=== PATIENT | female | born 1975 | race Caucasian/White ===

== ENCOUNTER 2023-01-07 12:03 | Emergency (ER) | payer MEDICAID ==
[~2023-01-07] VITALS: Ht 167.6 cm; Wt 131.8 kg
[2023-01-07] MEDS ORDERED: MORPHINE SULFATE 4 MG/ML SYR/VIAL IM ONE (14:45)
[2023-01-07] MEDS ORDERED: LIDOCAINE 1% HCL (LOCAL ANESTH.) INJ 20ML MDV ID ONE (14:45)
[2023-01-07] MEDS ORDERED: NEOMYCIN-BACITRACIN-POLYM UNITDOSE PKG TOP OINT TOP ONE (14:45)
[2023-01-07] MEDS ORDERED: ONDANSETRON ODT 4 MG TAB PO ONE (14:45)
[2023-01-07] MEDS ORDERED: TETANUS-DIPTH-ACEL PERTUSSIS 0.5ML SYR Tdap IM ONE (16:45)
[2023-01-07] MEDS ORDERED: HYDROcodone-ACET 10/325MG TAB PO ONE (16:45)
[2023-01-07 17:03] VITALS: BP 135/75
[2023-01-07] MEDS ORDERED: AUG875T PO (17:10)
[2023-01-07] MEDS ORDERED: HYDR-4902 PO ×2 (17:10)
[2023-01-07] MEDS ORDERED: CEPH-510 PO (17:10)
[2023-01-07] MEDS ORDERED: CYCL-839 PO (17:10)
== END 2023-01-07 17:40 | disposition home or self-care (01) ==
LOC: EDBD 12:03 → ER 12:03
DX: S52.612A Displaced fracture of left ulna styloid process, initial encounter for closed fracture (principal); S61.552A Open bite of left wrist, initial encounter; E78.5 Hyperlipidemia, unspecified; W54.0XXA Bitten by dog, initial encounter; Y93.89 Activity, other specified; Y92.89 Other specified places as the place of occurrence of the external cause; Y99.8 Other external cause status
CPT/HCPCS: 12002; 73110; 73130; 90471; 90715; 96372; 99284; J2001; J2270; Q0162

== ENCOUNTER 2023-01-09 11:47 | Inpatient (IN) | payer MEDICAID ==
[~2023-01-09] VITALS: Ht 167.6 cm; Wt 135.8 kg
[~2023-01-09 11:47] MED LIST: AUG875T PO; CEPH-510 PO; CYCL-839 PO; HYDR-4902 PO
[2023-01-09] MEDS ORDERED: PIPERACILLIN-TAZO 4.5GM 100 ML IV ONE (13:30)
[2023-01-09] MEDS ORDERED: cefTRIAXone 1GM/50ML D5W 50 ML IV ONE (13:30)
[2023-01-09 13:50] LABS: Basophils # (auto) 0.1 10 ^3/uL (0-0.2); Basophils % (auto) 0.8 % (0.0-2.0); Eosinophils # (auto) 0.1 10 ^3/uL (0-0.8); Eosinophils % (auto) 0.5 % (0.0-7.0); Hematocrit 38.4 % (36.0-46.0); Hemoglobin 12.7 g/dL (12.2-16.2); Lymphocytes # (auto) 2.1 10 ^3/uL (0.4-5.4); Lymphocytes % (auto) 18.1 % (10.0-50.0); Mean Corpuscular Hemoglobin 28.4 pg (28.0-32.0); Mean Corpuscular Hgb Conc. 33.1 g/dL (32.0-36.0); Mean Corpuscular Volume 85.8 fL (80.0-100.0); Monocytes # (auto) 0.8 10 ^3/uL (0-1.3); Monocytes % (auto) 6.9 % (0.0-12.0); Neutrophils # (auto) 8.6 10 ^3/uL (1.6-8.6); Neutrophils % (auto) 73.7 % (37.0-80.0); Nucleated Red Blood Cells % 0.1 %; Red Blood Cells 4.47 10^6/uL (4.0-5.20); Red Cell Distribution Width 15.2 % (11.8-14.3); White Blood Cell 11.6 10^3/uL (4.4-10.8)
[2023-01-09 14:07] LABS: BUN/Creatinine Ratio 15.9 (10.0-20.0); Calcium 9.6 mg/dL (8.5-10.1); Potassium 3.8 mmol/L (3.5-5.1)
[2023-01-09] MEDS ORDERED: ONDANSETRON HCL 4 MG/2 ML VIAL IV PRN (15:45)
[2023-01-09] MEDS ORDERED: NITROGLYCERIN 0.4 MG SL TAB SL PRN (15:45)
[2023-01-09] MEDS ORDERED: MORPHINE SULFATE INJ 2 MG/ml SYRG IV PRN (15:45)
[2023-01-09] MEDS ORDERED: TEMAZEPAM 15 MG CAP PO PRN (15:45)
[2023-01-09] MEDS ORDERED: ACETAMINOPHEN 325 MG TAB PO PRN (15:45)
[2023-01-09] MEDS ORDERED: hydrALAZINE HCL 20 MG/ML VL IV PRN (16:00)
[2023-01-09] MEDS: SODIUM CHLORIDE 0.9% 1,000 ML IV SCH ×2 (17:27→20:41)
[2023-01-09] MEDS: MORPHINE SULFATE INJ 2 MG/ml SYRG IV PRN ×2 (20:42→21:08)
[2023-01-09] MEDS: PIPERACILLIN-TAZOB 3.375GM 100 ML IV SCH (23:07)
[2023-01-10] MEDS: MORPHINE SULFATE INJ 2 MG/ml SYRG IV PRN ×3 (04:26→21:03)
[2023-01-10 05:00] VITALS: BP 132/57
[2023-01-10] MEDS: PIPERACILLIN-TAZOB 3.375GM 100 ML IV SCH ×3 (06:00→23:00)
[2023-01-10 06:50] LABS: Basophils # (auto) 0 10 ^3/uL (0-0.2); Basophils % (auto) 0.5 % (0.0-2.0); Eosinophils # (auto) 0.1 10 ^3/uL (0-0.8); Eosinophils % (auto) 1.1 % (0.0-7.0); Hematocrit 36.8 % (36.0-46.0); Hemoglobin 11.8 g/dL (12.2-16.2); Lymphocytes # (auto) 2.2 10 ^3/uL (0.4-5.4); Lymphocytes % (auto) 23.1 % (10.0-50.0); Mean Corpuscular Hemoglobin 28.4 pg (28.0-32.0); Mean Corpuscular Hgb Conc. 32.1 g/dL (32.0-36.0); Mean Corpuscular Volume 88.2 fL (80.0-100.0); Monocytes # (auto) 0.6 10 ^3/uL (0-1.3); Monocytes % (auto) 6.8 % (0.0-12.0); Neutrophils # (auto) 6.4 10 ^3/uL (1.6-8.6); Neutrophils % (auto) 68.5 % (37.0-80.0); Nucleated Red Blood Cells % 0.1 %; Red Blood Cells 4.17 10^6/uL (4.0-5.20); Red Cell Distribution Width 15.8 % (11.8-14.3); White Blood Cell 9.3 10^3/uL (4.4-10.8)
[2023-01-10 07:33] LABS: Albumin 2.9 g/dL (3.4-5.0); Calcium 8.6 mg/dL (8.5-10.1)
[2023-01-10 07:38] LABS: BUN/Creatinine Ratio 15.5 (10.0-20.0); Total Protein 7.5 g/dL (6.4-8.2)
[2023-01-10 09:00] VITALS: BP 119/63
[2023-01-10] MEDS: LISINOPRIL 20 MG TAB PO SCH (11:00)
[2023-01-10] MEDS: SODIUM CHLORIDE 0.9% 1,000 ML IV SCH (12:08)
[2023-01-10] MEDS: ENOXAPARIN SOD 40 MG/0.4 ML SYRINGE SC SCH (12:09)
[2023-01-10] MEDS: PANTOPRAZOLE 40 MG TAB PO SCH (12:09)
[2023-01-10 13:00] VITALS: BP 125/71
[2023-01-10 17:00] VITALS: BP 128/63
[2023-01-10 21:58] VITALS: BP 111/59
[2023-01-11] MEDS: SODIUM CHLORIDE 0.9% 1,000 ML IV SCH ×2 (01:05→17:02)
[2023-01-11] MEDS: MORPHINE SULFATE INJ 2 MG/ml SYRG IV PRN ×2 (01:33→05:41)
[2023-01-11 05:00] VITALS: BP 156/80
[2023-01-11] MEDS: DOCUSATE SOD 100 MG CAP PO PRN ×2 (05:41→19:50)
[2023-01-11] MEDS: PIPERACILLIN-TAZOB 3.375GM 100 ML IV SCH ×3 (05:49→21:13)
[2023-01-11 09:00] VITALS: BP 128/71
[2023-01-11] MEDS: LISINOPRIL 20 MG TAB PO SCH (10:00)
[2023-01-11] MEDS ORDERED: LORazepam 0.5 MG TAB PO ONE (11:00)
[2023-01-11] MEDS: ENOXAPARIN SOD 40 MG/0.4 ML SYRINGE SC SCH (11:34)
[2023-01-11] MEDS: PANTOPRAZOLE 40 MG TAB PO SCH (11:34)
[2023-01-11] MEDS ORDERED: LORazepam 2MG/ML-1ML VIAL IV ONE (12:30)
[2023-01-11 13:00] VITALS: BP 153/77
[2023-01-11 17:00] VITALS: BP 141/61
[2023-01-11 22:00] VITALS: BP 145/72
[2023-01-11] MEDS: HYDROcodone-ACET 5/325MG TAB PO PRN (23:12)
[2023-01-12 01:48] LABS: Partial Thromboplastin Time 26.3 sec (24.6-33.4)
[2023-01-12 05:00] VITALS: BP 129/59
[2023-01-12] MEDS: PIPERACILLIN-TAZOB 3.375GM 100 ML IV SCH ×3 (05:24→21:38)
[2023-01-12 09:02] VITALS: BP 159/77
[2023-01-12] MEDS: LISINOPRIL 20 MG TAB PO SCH (10:00)
[2023-01-12] MEDS: PANTOPRAZOLE 40 MG TAB PO SCH (10:00)
[2023-01-12] MEDS: ENOXAPARIN SOD 40 MG/0.4 ML SYRINGE SC SCH (10:00)
[2023-01-12] MEDS: SODIUM CHLORIDE 0.9% 1,000 ML IV SCH (10:25)
[2023-01-12] MEDS ORDERED: fentaNYL CITRATE 100 MCG/2 ML VL ONE (10:31)
[2023-01-12] MEDS ORDERED: MIDAZOLAM HCL 2MG/2ML 2ml VIAL (1mg/ml) ONE (10:31)
[2023-01-12] MEDS ORDERED: ceFAZolin 1GM VL ONE (10:31)
[2023-01-12] MEDS ORDERED: ONDANSETRON HCL 4 MG/2 ML VIAL ONE (10:57)
[2023-01-12] MEDS ORDERED: HYDROmorphone HCL 2 MG/ML VL/or syr IV ONE ×2 (11:30→11:40)
[2023-01-12] MEDS ORDERED: HYDROmorphone HCL 2 MG/ML VL/or syr IV PRN ×2 (11:30)
[2023-01-12] MEDS ORDERED: METOCLOPRAMIDE HCL 5MG/ml INJ 2ml VIAL IV PRN (11:30)
[2023-01-12] MEDS ORDERED: hydrALAZINE HCL 20 MG/ML VL IV ONE (12:05)
[2023-01-12 13:00] VITALS: BP 152/67
[2023-01-12] MEDS: DOCUSATE SOD 100 MG CAP PO PRN (13:24)
[2023-01-12] MEDS ORDERED: LACTULOSE 20Gm/30ML SOLN PO PRN (16:15)
[2023-01-12 16:59] VITALS: BP 135/50
[2023-01-12] MEDS: HYDROcodone-ACET 5/325MG TAB PO PRN (18:17)
[2023-01-12 22:00] VITALS: BP 134/68
[2023-01-13] MEDS: HYDROcodone-ACET 5/325MG TAB PO PRN ×3 (00:17→16:42)
[2023-01-13] MEDS: SODIUM CHLORIDE 0.9% 1,000 ML IV SCH ×2 (04:04→20:54)
[2023-01-13 05:00] VITALS: BP 148/65
[2023-01-13] MEDS: DOCUSATE SOD 100 MG CAP PO PRN (05:15)
[2023-01-13] MEDS: PIPERACILLIN-TAZOB 3.375GM 100 ML IV SCH ×3 (05:15→21:08)
[2023-01-13 09:00] VITALS: BP 148/92
[2023-01-13] MEDS: PANTOPRAZOLE 40 MG TAB PO SCH (09:39)
[2023-01-13] MEDS: LISINOPRIL 20 MG TAB PO SCH (09:39)
[2023-01-13] MEDS: NICOTINE 14 MG/24HR TOPICAL PATCH TD SCH (09:40)
[2023-01-13] MEDS: ENOXAPARIN SOD 40 MG/0.4 ML SYRINGE SC SCH (09:41)
[2023-01-13] MEDS ORDERED: HYDR-4902 PO (10:35)
[2023-01-13 13:00] VITALS: BP 161/66
[2023-01-13 22:00] VITALS: BP 135/72
[2023-01-14 05:00] VITALS: BP 164/76
[2023-01-14] MEDS: PIPERACILLIN-TAZOB 3.375GM 100 ML IV SCH ×3 (05:24→22:20)
[2023-01-14 08:58] VITALS: BP 160/74
[2023-01-14] MEDS: NICOTINE 14 MG/24HR TOPICAL PATCH TD SCH (10:00)
[2023-01-14] MEDS: LISINOPRIL 20 MG TAB PO SCH (10:00)
[2023-01-14] MEDS ORDERED: AMOX-277 PO (10:19)
[2023-01-14] MEDS ORDERED: BACDST PO (10:20)
[2023-01-14] MEDS ORDERED: RIFA300C3 PO (10:21)
[2023-01-14] MEDS: HYDROcodone-ACET 5/325MG TAB PO PRN ×2 (11:12→16:56)
[2023-01-14] MEDS: ENOXAPARIN SOD 40 MG/0.4 ML SYRINGE SC SCH (11:12)
[2023-01-14] MEDS: PANTOPRAZOLE 40 MG TAB PO SCH (11:13)
[2023-01-14] MEDS: SODIUM CHLORIDE 0.9% 1,000 ML IV SCH (12:25)
[2023-01-14 17:00] VITALS: BP 158/72
[2023-01-14 22:00] VITALS: BP 150/72
[2023-01-15] MEDS: PIPERACILLIN-TAZOB 3.375GM 100 ML IV SCH ×2 (05:54→14:49)
[2023-01-15] MEDS: SODIUM CHLORIDE 0.9% 1,000 ML IV SCH (05:54)
[2023-01-15 09:00] VITALS: BP 154/78
[2023-01-15] MEDS: NICOTINE 14 MG/24HR TOPICAL PATCH TD SCH (10:00)
[2023-01-15] MEDS: PANTOPRAZOLE 40 MG TAB PO SCH (10:08)
[2023-01-15] MEDS: ENOXAPARIN SOD 40 MG/0.4 ML SYRINGE SC SCH (10:09)
[2023-01-15] MEDS: LISINOPRIL 20 MG TAB PO SCH (10:09)
[2023-01-15] MEDS: HYDROcodone-ACET 5/325MG TAB PO PRN (10:10)
[2023-01-15 13:00] VITALS: BP 153/80
[2023-01-15 17:00] VITALS: BP 146/86
[2023-01-15 18:20] VITALS: BP 146/86
== END 2023-01-15 19:16 | disposition home health service (06) | DRG 316 ==
LOC: ER 11:47 → OVERFLOW 15:50 → CENTRAL 23:32
PROVIDERS: ADMIT Nurse Practitioner; ATTEND Nurse Practitioner
PROC: 0JBK0ZZ Excision of Left Hand Subcutaneous Tissue and Fascia, Open Approach (ICD-10-PCS; principal; 2023-01-12 10:31)
DX: S52.202A Unspecified fracture of shaft of left ulna, initial encounter for closed fracture (principal); T79.7XXA Traumatic subcutaneous emphysema, initial encounter; L03.114 Cellulitis of left upper limb; S61.552A Open bite of left wrist, initial encounter; K59.00 Constipation, unspecified; F17.210 Nicotine dependence, cigarettes, uncomplicated; Z20.822 Contact with and (suspected) exposure to COVID-19; Z82.49 Family history of ischemic heart disease and other diseases of the circulatory system; W54.0XXA Bitten by dog, initial encounter; Y93.89 Activity, other specified; Y92.89 Other specified places as the place of occurrence of the external cause; Y99.8 Other external cause status; Z71.6 Tobacco abuse counseling
CPT/HCPCS: 36415; 73221; 80048; 80053; 83605; 84702; 85025; 85610; 85730; 86850; 86900; 86901; 87040; 87070; 87075; 87077; 87081; 87186; 87205; 87426; 93005; 96365; G0378; J0690; J0696; J2250; J2405; J2543; J7042

== ENCOUNTER 2023-01-20 04:42 | Emergency (ER) | payer MEDICAID ==
[~2023-01-20] VITALS: Ht 167.6 cm; Wt 135.0 kg
[~2023-01-20 04:42] MED LIST changes: +AMOX-277 PO; -AUG875T PO; +BACDST PO; -CEPH-510 PO; +RIFA300C3 PO
[2023-01-20 05:02] VITALS: BP 169/79
[2023-01-20] MEDS ORDERED: SODIUM CHLORIDE 0.9% 1,000 ML IV ONE (07:00)
== END 2023-01-20 07:45 | disposition left against medical advice (07) ==
LOC: ER 04:42
DX: R11.2 Nausea with vomiting, unspecified (principal); Z53.21 Procedure and treatment not carried out due to patient leaving prior to being seen by health care provider

== ENCOUNTER 2023-01-30 11:03 | Emergency (ER) | payer MEDICAID ==
[~2023-01-30] VITALS: Ht 167.6 cm; Wt 131.7 kg
[2023-01-30 12:11] VITALS: BP 146/96
[2023-01-30] MEDS ORDERED: CLIN300C8 PO (12:12)
== END 2023-01-30 12:21 | disposition home or self-care (01) ==
LOC: ER 11:03
DX: Z48.00 Encounter for change or removal of nonsurgical wound dressing (principal); Z88.1 Allergy status to other antibiotic agents

== ENCOUNTER 2025-05-30 15:16 | Emergency (ER) | payer MEDICAID ==
[~2025-05-30] VITALS: Ht 167.6 cm; Wt 136.7 kg
[~2025-05-30 15:16] MED LIST changes: -AMOX-277 PO; +AMOX875T4 PO; +CLIN1CAP70 PO; -RIFA300C3 PO; +RIFA300C58 PO
--- NOTE | 2025-05-30 15:56 | ED.PDOC ---
Back pain HPI HPI Comments 49 y/o F, presents to the ED for CC of left leg pain. Patient states, she has been experiencing left leg and knee pain sudden onset, x3-4days ago. Patient endorses, that pain worsens while lying down and feels "like if there is fluid inside". Patient reports, standing over x8hrs d/t work and believes symptoms maybe related to this. Patient denies any trauma, injury, or fall. No others symptoms or modifying factors are present at this time. Chief Complaint: Lower Extremity Time Seen by MD: 15:45 Primary Care Provider: YOHAN Reviewed Notes: Nurses Notes, Medications, Allergies Allergies: Coded Allergies: No Known Drug Allergy (Verified Allergy, Unknown, 01/07/23) Uncoded Allergies: TRIMEX (Allergy, Unknown, 01/07/23) Home Meds Active Scripts Clindamycin Hcl (Clindamycin Hcl) 300 Mg Cap, 300 MG PO QID for 7 Days, #28 CAP Prov:KRIS PEARCE 01/30/23 Rifampin (Rifampin) 300 Mg Cap, 300 MG PO BID for 40 Days, #80 CAP Prov:MARINA ALMANZAR MD 01/14/23 Sulfamethoxazole W/Trimethopri (Bactrim Ds Tablet) 1 Tab Tb, 1 TAB PO BID for 40 Days, #80 TAB Prov:MARINA ALMANZAR MD 01/14/23 Amoxicillin & Pot Clavulanate (Amoxicillin/Potassium Cla) 875 Mg Tab, 1 TAB PO BID for 40 Days, #80 TAB Prov:MARINA ALMANZAR MD 01/14/23 Hydrocodone-Acetaminophen (Hydrocodone Bitartrate/AC 5-325 mg) 1 Tab Tab, 1 TAB PO Q6HPRN PRN for 4 Days, #16 TAB 0 Refills Prov:VIOLA PARKS INSURANCE EXAMINING CLERK 01/13/23 Cyclobenzaprine Hcl (Cyclobenzaprine Hcl) 10 Mg Tab, 10 MG PO Q8HPRN PRN, #12 TAB 0 Refills Prov:DOMINGO ALCALA REFINISHER 01/07/23 Information Source: Patient Mode of Arrival: Ambulatory Duration: Since onset Location of Back pain: Other (left leg pain, left knee pain) Severity: Moderate Prehospital treatment: None Onset: Spontaneous Circumstance: Work Related History of: None Associated signs and symptoms: None Past Medical History PAST MEDICAL HISTORY: Denies Surgical History: Denies all surgeries LADLE WATCHER History: No Pertinent LADLE WATCHER History Family History Family History: Reviewed,noncontributory to illness, No family hx of Cancer, No family hx of DM, No family hx of Heart ayan, No family hx of HTN, No family hx ofKidney ayan, No family hx of Liver ayan, No family hx of Lung ayan, No family hx of Stroke Social History Smoker: Non-Smoker Alcohol: Denies ETOH Use Drugs: Denies Drug Use Lives In: Home Constitutional: denies: chills, diaphoresis, fatigue, fever, malaise, sweats, weakness, others EENTM: denies: blurred vision, double vision, ear bleeding, ear discharge, ear drainage, ear pain, ear ringing, eye pain, eye redness, hearing loss, mouth pain, mouth swelling, nasal discharge, nose bleeding, nose congestion, nose pain, photophobia, tearing, throat pain, throat swelling, voice changes, others Respiratory: denies: cough, hemoptysis, orthopnea, SOB at rest, shortness of breath, SOB with excertion, stridor, wheezing, others Cardiovascular: denies: chest pain, dizzy spells, diaphoresis, Dyspnea on exertion, edema, irregular heart beat, left arm pain, lightheadedness, palpitations, PND, syncope, others Gastrointestinal: denies: abdomen distended, abdominal pain, blood streaked bowels, constipated, diarrhea, dysphagia, difficulty swallowing, hematemesis, melena, nausea, poor appetite, poor fluid intake, rectal bleeding, rectal pain, vomiting, others Genitourinary: denies: abnormal vagina bleeding, burning, dyspareunia, dysuria, flank pain, frequency, hematuria, incontinence, pain, , vagina discharge, urgency, others Neurological: denies: dizziness, fainting, headache, left sided numbness, left sided weakness, numbness, paresthesia, pre-existing deficit, right sided numbness, right sided weakness, seizure, speech problems, tingling, tremors, weakness, others Musculoskeletal: reports: others (left knee pain); denies: back pain, gout, joint pain, joint swelling, muscle pain, muscle stiffness, neck pain Integumetry: denies: bruises, change in color, change in hair/nails, dryness, laceration, lesions, lumps, rash, wounds, others Allergic/Immunocompromised: denies: Difficulty Healing, Frequent Infections, Hives, Itching, others Hematologic/Lymphatic: denies: anemia, blood clots, easy bleeding, easy bruising, swollen glands, others Endocrine: denies: excessive hunger, excessive sweating, excessive thirst, excessive urination, flushing, intolerance to cold, intolerance to heat, unexplained weight gain, unexplained weight loss, others Psychiatric: denies: anxiety, bipolar disorder, depression, hopeless, panic disorder, schizophrenia, sleepless, suicidal, others All Other Systems: Reviewed and Negative Physical Exam General Appearance: No Apparent Distress, Normal HEENT: Normal ENT Inspection, Pharynx Normal Neck: Full Range of Motion, Non-Tender, Normal, Normal Inspection Respiratory: Chest Non-Tender, Lungs Clear, No Accessory Muscle Use, No Respiratory Distress, Normal Breath Sounds Cardiovascular: No Edema, No Murmur, No Gallop, Normal Peripheral Pulses, Regular Rate/Rhythm Breast Exam: Deferred Gastrointestinal: No Organomegaly, Non Tender, No Pulsatile Mass, Normal Bowel Sounds, Soft Genitalia: Deferred Pelvic: Deferred Rectal: Deferred Extremities: No calf tenderness, Normal capillary refill, Normal inspection, Normal range of motion, Non-tender, No pedal edema Musculoskeletal : Location: Left Extremity Location: Knee Apperance: Tenderness Neurologic: Alert, capital equipment specialist II-XII nml as Tested, No Motor Deficits, Normal Affect, Normal Mood, No Sensory Deficits Cerebellar Function: Normal Reflexes: Normal Skin: Dry, Normal Color, Warm Lymphatic: No Adenopathy Was a procedure done? Was a procedure done?: No Back Pain Differential Dx Differential Diagnosis: Musculoskeletal Pain, Strain X-Ray, Labs, Meds, VS Vital Signs Date Time Temp Pulse Resp B/P (MAP) Pulse Ox O2 Delivery O2 Flow Rate FiO2 05/30/25 16:14 75 18 92 Room Air 05/30/25 16:14 98.3 75 18 151/45 (80) 92 98.3 05/30/25 15:17 98.0 81 15 165/96 97 98.0 Current Medications Medications (Trade) Dose Ordered Sig/Abdirizak Route Start Time Stop Time Status Last Admin Methylprednisolone Sodium Succinate (Solu Medrol) 125 mg ONCE ONCE IM 05/30/25 16:00 05/30/25 16:01 DC 05/30/25 16:03 Ketorolac Tromethamine (Toradol Injection) 30 mg ONCE ONCE IM 05/30/25 16:00 05/30/25 16:01 DC 05/30/25 16:[address] [address] Ph: [phone] DIAGNOSTIC IMAGING Diagnostic Imaging Report : [id number] Signed PATIENT: VANESSA SÁNCHEZ ACCT: [id number] UNIT: [id number] : 1975 LOC: ER ROOM / BED: / AGE / SEX: 49 / F ADM STATUS: REG ER SERVICE 1552 ORDERING PHYSICIAN: ROSE GARRETT PROCEDURE(s): LKNE3 - L KNEE 3V XRAY REASON: knee pain ORDER NUMBER(s): [id number], ACCESSION NUMBER(s): [id number] CLINICAL INDICATION: knee pain TECHNIQUE: 3 views left knee XY L KNEE 3V XRAY Comparison: None FINDINGS/IMPRESSION: : There is no evidence of acute fracture or dislocation. Soft tissues are unremarkable. ATED BY: CELINA OROZCO MD DICTATED DATE/TIME: 05/30/251628 SIGNED BY: CELINA OROZCO MD SIGNED DATE/TIME: 05/30/251628 CC: X-Ray, Labs, Meds, VS Comment Imaging was reviewed by this provider, there is no obvious pathological or acute disease process. Pending radiology review Labs were reviewed by this provider, no abnormalities Vital signs reviewed by this provider, clinically stable Time of 1ST Reevaluation: 15:15 Reevaluation 1ST: Unchanged Patient Education/Counseling: Diagnosis, Treatment, Need For Follow Up (Follow- up with PCP in the next 2-4 days. Return to the emergency department in the nex t 24-48 hours if symptoms worsen.) Family Education/Counseling: No Family Present SEPSIS Sepsis Screen Date sepsis recognized/suspect: May 30, 2025 Time Sepsis recognized/suspect: 1520 Recent Procedure: No On Antibiotic Therapy: No Respiratory Rate >20: No Heart Rate >90: No Temp<36 C (96.8 F) or >38.3 C: No SBP <90 or MAP <65 mmHG: No New Acute Mental Status Change: No Is the patient on CPAP, BIPAP,: No Physician Orders L Knee 3v Xray (05/30/25 15:51) Vital Signs Date Time Temp Pulse Resp B/P (MAP) Pulse Ox O2 Delivery O2 Flow Rate FiO2 05/30/25 16:14 75 18 92 Room Air 05/30/25 16:14 98.3 75 18 151/45 (80) 92 98.3 05/30/25 15:17 98.0 81 15 165/96 97 98.0 Medications Medications Dose Ordered Sig/Abdirizak Route Start Time Stop Time Status Last Admin Dose Admin Ketorolac Tromethamine 30 mg ONCE ONCE IM 05/30/25 16:00 05/30/25 16:01 DC 05/30/25 16:03 Methylprednisolone Sodium Succinate 125 mg ONCE ONCE IM 05/30/25 16:00 05/30/25 16:01 DC 05/30/25 16:03 Departure 1 Departure Time of Disposition: 17:01 Impression: Primary Impression: Effusion, left knee Disposition: 01 HOME / SELF CARE / HOMELESS Condition: Fair e-Prescriptions Methylprednisolone (Medrol Dosepak) 4 Mg Josh 4 MG PO UD, #21 TAB UAD Prov: ROSE GARRETT 05/30/25 Discharged With: Self Critical Care Note Critical Care Time?: No Stability Stability form required: No Heart Score Heart Score: Heart Score Response (Comments) Value History N/A 0 EKG N/A 0 Age N/A 0 Risk Factors N/A 0 Troponin N/A 0 Total 0 I personally scribed for ROSE GARRETT REFINISHER ([email or web address]) on 05/30/25 at 15:56. Electronically submitted by Evelin Moura ([email or web address]). I personally scribed for ROSE GARRETT REFINISHER ([email or web address]) on 05/30/25 at 16:55. Electronically submitted by Evelin Moura ([email or web address]). ROSE GARRETT REFINISHER May 30, 2025 15:56
[2025-05-30] MEDS: KETOROLAC TROMETH 30 MG/ML 1ML VIAL IM ONE (16:03)
[2025-05-30] MEDS: methylPREDNISolone SOD SUCC 125 MG/2 ML VL IM ONE (16:03)
--- NOTE | 2025-05-30 16:31 | DVH ---
CLINICAL INDICATION: knee pain TECHNIQUE: 3 views left knee XY L KNEE 3V XRAY Comparison: None FINDINGS/IMPRESSION: : There is no evidence of acute fracture or dislocation. Soft tissues are unremarkable.
[2025-05-30] MEDS ORDERED: METH4PAK PO (17:02)
[2025-05-30 18:02] VITALS: BP 154/97; PULSE 84; RESP 18; TEMP 98.1; O2SAT 96
== END 2025-05-30 18:02 | disposition home or self-care (01) ==
LOC: ER 15:16
DX: M25.462 Effusion, left knee (principal); Z79.899 Other long term (current) drug therapy
CPT/HCPCS: 73562; 96372; 99284; J1885; J2919

== ENCOUNTER 2025-06-23 19:50 | Emergency (ER) | payer MEDICAID ==
[~2025-06-23] VITALS: Ht 167.6 cm; Wt 137.2 kg
[~2025-06-23 19:50] MED LIST changes: +METH4PAK PO
--- NOTE | 2025-06-23 20:20 | ED.PDOC ---
General HPI Comments This is a 50 year old female presenting to the ED with chief complaint of urinary symptoms. Patient reports that she has been dealing with a UTI since 05/30 when she was diagnosed, but the Rx she has received has not resolved her symptoms of dysuria. Patient relays that she has also been experiencing associated episodes of brain fog/confusion and prolonged vaginal bleeding for the past 2 weeks. Patient denies any frequency, hematuria, N/V/D, or abdominal pain. Patient was hypertensive at arrival. Chief Complaint: Urinary Time Seen by MD: 20:17 Primary Care Provider: YOHAN Reviewed notes: Nurses Notes, Medications, Allergies Allergies: Coded Allergies: No Known Drug Allergy (Verified Allergy, Unknown, 01/07/23) Uncoded Allergies: TRIMEX (Allergy, Unknown, 01/07/23) Home Meds Active Scripts Methylprednisolone (Medrol Dosepak) 4 Mg Josh, 4 MG PO UD, #21 TAB UAD Prov:ROSE GARRETT LABORER FILTER PLANT 05/30/25 Clindamycin Hcl (Clindamycin Hcl) 300 Mg Cap, 300 MG PO QID for 7 Days, #28 CAP Prov:KRIS PEARCE 01/30/23 Rifampin (Rifampin) 300 Mg Cap, 300 MG PO BID for 40 Days, #80 CAP Prov:MARINA ALMANZAR MD 01/14/23 Sulfamethoxazole W/Trimethopri (Bactrim Ds Tablet) 1 Tab Tb, 1 TAB PO BID for 40 Days, #80 TAB Prov:MARINA ALMANZAR MD 01/14/23 Amoxicillin & Pot Clavulanate (Amoxicillin/Potassium Cla) 875 Mg Tab, 1 TAB PO BID for 40 Days, #80 TAB Prov:MARINA ALMANZAR MD 01/14/23 Hydrocodone-Acetaminophen (Hydrocodone Bitartrate/AC 5-325 mg) 1 Tab Tab, 1 TAB PO Q6HPRN PRN for 4 Days, #16 TAB 0 Refills Prov:VIOLA PARKS FUNERAL PRE ARRANGEMENT COUNSELOR 01/13/23 Cyclobenzaprine Hcl (Cyclobenzaprine Hcl) 10 Mg Tab, 10 MG PO Q8HPRN PRN, #12 TAB 0 Refills Prov:DOMINGO ALCALA LABORER FILTER PLANT 01/07/23 Information Source: Patient Mode of Arrival: Ambulatory Severity: Moderate Timing: Weeks Duration: Since onset Prehospital treatment: None Onset: Spontaneous History of: UTI Location: Suprapubic associated signs and symptoms: Abdominal Pain Past Medical History PAST MEDICAL HISTORY: Denies Surgical History: Denies all surgeries PARENT AIDE History: No Pertinent PARENT AIDE History Family History Family History: Reviewed,noncontributory to illness, No family hx of Cancer, No family hx of DM, No family hx of Heart ayan, No family hx of HTN, No family hx ofKidney ayan, No family hx of Liver ayan, No family hx of Lung ayan, No family hx of Stroke Social History Smoker: Non-Smoker Alcohol: Denies ETOH Use Drugs: Denies Drug Use Lives In: Home Constitutional: denies: chills, diaphoresis, fatigue, fever, malaise, sweats, weakness, others EENTM: denies: blurred vision, double vision, ear bleeding, ear discharge, ear drainage, ear pain, ear ringing, eye pain, eye redness, hearing loss, mouth pain, mouth swelling, nasal discharge, nose bleeding, nose congestion, nose pain, photophobia, tearing, throat pain, throat swelling, voice changes, others Respiratory: denies: cough, hemoptysis, orthopnea, SOB at rest, shortness of breath, SOB with excertion, stridor, wheezing, others Cardiovascular: denies: chest pain, dizzy spells, diaphoresis, Dyspnea on exertion, edema, irregular heart beat, left arm pain, lightheadedness, palpitations, PND, syncope, others Gastrointestinal: denies: abdomen distended, abdominal pain, blood streaked bowels, constipated, diarrhea, dysphagia, difficulty swallowing, hematemesis, melena, nausea, poor appetite, poor fluid intake, rectal bleeding, rectal pain, vomiting, others Genitourinary: reports: abnormal vagina bleeding, dysuria; denies: burning, dyspareunia, flank pain, frequency, hematuria, incontinence, pain, , vagina discharge, urgency, others Neurological: denies: dizziness, fainting, headache, left sided numbness, left sided weakness, numbness, paresthesia, pre-existing deficit, right sided numbness, right sided weakness, seizure, speech problems, tingling, tremors, weakness, others Musculoskeletal: denies: back pain, gout, joint pain, joint swelling, muscle pain, muscle stiffness, neck pain, others Integumetry: denies: bruises, change in color, change in hair/nails, dryness, laceration, lesions, lumps, rash, wounds, others Allergic/Immunocompromised: denies: Difficulty Healing, Frequent Infections, Hives, Itching, others Hematologic/Lymphatic: denies: anemia, blood clots, easy bleeding, easy bruising, swollen glands, others Endocrine: denies: excessive hunger, excessive sweating, excessive thirst, excessive urination, flushing, intolerance to cold, intolerance to heat, unexplained weight gain, unexplained weight loss, others Psychiatric: denies: anxiety, bipolar disorder, depression, hopeless, panic disorder, schizophrenia, sleepless, suicidal, others All Other Systems: Reviewed and Negative Physical Exam General Appearance: Mild Distress (Patient was in moderate distress at time of evaluation due to concerns related to her urinary tract infection and recent extended vaginal bleeding.), Obese HEENT: Normal ENT Inspection, Pharynx Normal, TMs Normal Neck: Full Range of Motion, Non-Tender, Normal, Normal Inspection Respiratory: Chest Non-Tender, Lungs Clear, No Accessory Muscle Use, No Respira tory Distress, Normal Breath Sounds Cardiovascular: No Edema, No JVD, No Murmur, No Gallop, Normal Peripheral Pulses, Regular Rate/Rhythm Breast Exam: Deferred Gastrointestinal: No Organomegaly, Non Tender, No Pulsatile Mass, Normal Bowel Sounds, Soft Genitalia: Deferred Pelvic: Deferred Rectal: Deferred Extremities: No calf tenderness, Normal capillary refill, Normal inspection, Normal range of motion, Non-tender, No pedal edema Neurologic: Alert, No Motor Deficits, Normal Affect, Normal Mood, No Sensory Deficits Cerebellar Function: NOT DONE Reflexes: NOT DONE Skin: Dry, Normal Color, Warm Lymphatic: No Adenopathy Was a procedure done? Was a procedure done?: No Differential Diagnosis Kidney stone (Female): Other (UTI, anemia, dysfunctional uterine bleed, perimenopause) X-Ray, Labs, Meds, VS Vital Signs Date Time Temp Pulse Resp B/P (MAP) Pulse Ox O2 Delivery O2 Flow Rate FiO2 06/23/25 19:58 97.9 86 18 167/78 97 97.9 Lab Test 06/23/25 21:06 06/23/25 20:36 Range/Units Urine Color Light-orange Yellow Urine Clarity Turbid H Clear Urine pH 6.0 5.0-9.0 Urine Specific Orma 1.023 1.001-1.035 Urine Protein 1+ H Negative Urine Ketones Negative Negative Urine Blood 3+ H Negative /uL Urine Nitrite Negative Negative Urine Bilirubin Negative Negative Urine Urobilinogen Normal Negative mg/dL Urine Leukocyte Esterase 2+ Negative /uL Urine RBC 16 0 - 4 /hpf Urine Microscopic WBC 36 H 0-5 /HPF Urine Squamous Epithelial Cells Mod <5 /hpf Urine Bacteria Few H None Seen /hpf Urine Mucus Few None Seen Urine Glucose Normal Normal mg/dL White Blood Count 8.5 4.4-10.8 10^3/uL Red Blood Count 4.14 4.0-5.20 10^6/uL Hemoglobin 12.1 L 12.2-16.2 g/dL Hematocrit 35.9 L 36.0-46.0 % Mean Corpuscular Volume 86.7 80.0-100.0 fL Mean Corpuscular Hemoglobin 29.2 28.0-32.0 pg Mean Corpuscular Hemoglobin Concent 33.6 32.0-36.0 g/dL Red Cell Distribution Width 14.8 H 11.8-14.3 % Platelet Count 395 140-450 10^3/uL Mean Platelet Volume 7.9 6.9-10.8 fL Neutrophils (%) (Auto) 51.5 37.0-80.0 % Lymphocytes (%) (Auto) 40.4 10.0-50.0 % Monocytes (%) (Auto) 5.2 0.0-12.0 % Eosinophils (%) (Auto) 2.0 0.0-7.0 % Basophils (%) (Auto) 0.9 0.0-2.0 % Neutrophils # (Auto) 4.4 1.6-8.6 10 ^3/uL Lymphocytes # (Auto) 3.4 0.4-5.4 10 ^3/uL Monocytes # (Auto) 0.4 0-1.3 10 ^3/uL Eosinophils # (Auto) 0.2 0-0.8 10 ^3/uL Basophils # (Auto) 0.1 0-0.2 10 ^3/uL Nucleated Red Blood Cells 0.1 % Sodium Level 139 136-145 mmol/L Potassium Level 4.0 3.5-5.1 mmol/L Chloride Level 108 H 98-107 mmol/L Carbon Dioxide Level 24 20-31 mmol/L Anion Gap 7 5-15 Blood Urea Nitrogen 10 9-23 mg/dL Creatinine 0.69 0.550-1.02 mg/dL Glomerular Filtration Rate Calc 104 >90 mL/min BUN/Creatinine Ratio 14.5 10.0-20.0 Serum Glucose 116 H 74-106 mg/dL Calcium Level 9.0 8.7-10.4 mg/dL Total Bilirubin 0.2 0.2-1.0 mg/dL Aspartate Amino Transferase (AST) 15 13-40 U/L Alanine Aminotransferase (ALT) 12 7-40 U/L Alkaline Phosphatase 90 46-116 U/L Total Protein 7.7 5.7-8.2 g/dL Albumin 4.2 3.2-4.8 g/dL X-Ray, Labs, Meds, VS Comment All studies performed the ED were evaluated by me personally. Serum studies showed a mild anemia and urinalysis confirmed a urinary tract infection. Patient was given a dose of Rocephin before she left the facility. Advised patient follow up with her tax processor or primary care provider for discussions related to what appears to be a perimenopausal concern. Time of 1ST Reevaluation: 22:24 Reevaluation 1ST: Improved Consultation: PCP, limousine and hearse upholsterer Patient Education/Counseling: Diagnosis, Treatment Family Education/Counseling: Diagnosis, Treatment, No Family Present SEPSIS Sepsis Screen Date sepsis recognized/suspect: Jun 23, 2025 Time Sepsis recognized/suspect: 2004 Recent Procedure: No On Antibiotic Therapy: No Respiratory Rate >20: No Heart Rate >90: No Temp<36 C (96.8 F) or >38.3 C: No SBP <90 or MAP <65 mmHG: No New Acute Mental Status Change: No Is the patient on CPAP, BIPAP,: No Vital Signs Date Time Temp Pulse Resp B/P (MAP) Pulse Ox O2 Delivery O2 Flow Rate FiO2 06/23/25 19:58 97.9 86 18 167/78 97 97.9 Laboratory Tests Test 06/23/25 20:36 White Blood Count 8.5 10^3/uL (4.4-10.8) Departure 1 Departure Time of Disposition: 22:24 Impression: Primary Impression: Urinary tract infection Additional Impressions: Anemia Dysfunctional uterine bleeding Disposition: HOME / SELF CARE / HOMELESS Condition: Stable Additional Instructions: Advise utilizing medications as directed and additionally, patient should follow up with the primary care provider for discussions related to her probable perimenopausal concerns. e-Prescriptions Ferrous Sulfate (FERROUS SULFATE) 325 Mg Tb 1 TAB PO DAILY, #30 TAB 0 Refills Prov: CARLEE ASHLEY PAC 06/23/25 Nitrofurantoin Monohydrate Mac (Macrobid) 100 Mg Cap 100 MG PO BID for 7 Days, #14 CAP Prov: CARLEE ASHLEY PAC 06/23/25 Discharged With: Self, Friend Critical Care Note Critical Care Time?: No Stability Stability form required: No Heart Score Heart Score: Heart Score Response (Comments) Value History N/A 0 EKG N/A 0 Age N/A 0 Risk Factors N/A 0 Troponin N/A 0 Total 0 I personally scribed for CARLEE ASHLEY PAC ([email or web address]) on 06/23/25 at 20:20. Electronically submitted by Eduardo Lopez ([email or web address]). CARLEE ASHLEY PAC Jun 23, 2025 20:20
[2025-06-23 20:48] LABS: Hematocrit 35.9 % (36.0-46.0); Hemoglobin 12.1 g/dL (12.2-16.2); Mean Corpuscular Hemoglobin 29.2 pg (28.0-32.0); Mean Corpuscular Volume 86.7 fL (80.0-100.0); Nucleated Red Blood Cells % 0.1 %
[2025-06-23 21:12] LABS: Alanine Aminotransferase 12 U/L (7-40); Albumin 4.2 g/dL (3.2-4.8); Alkaline Phosphatase 90 U/L (46-116); Anion Gap 7 (5-15); BUN/Creatinine Ratio 14.5 (10.0-20.0); Blood Urea Nitrogen 10 mg/dL (9-23); Calcium 9.0 mg/dL (8.7-10.4); Carbon Dioxide 24 mmol/L (20-31); Potassium 4.0 mmol/L (3.5-5.1); Sodium 139 mmol/L (136-145); Total Protein 7.7 g/dL (5.7-8.2)
[2025-06-23 21:15] LABS: Bilirubin, Total 0.2 mg/dL (0.2-1.0); Chloride 108 mmol/L (98-107); Glucose 116 mg/dL (74-106)
[2025-06-23 22:18] LABS: Urine Protein, UAD 1+ (Negative)
[2025-06-23] MEDS ORDERED: NITR-87 PO (22:26)
[2025-06-23] MEDS ORDERED: FER325T PO (22:26)
[2025-06-23 23:39] VITALS: BP 142/69; PULSE 66; RESP 19; TEMP 98.5; O2SAT 0
[2025-06-23] MEDS: cefTRIAXone SOD 1,000 MG VL IM ONE (23:39)
== END 2025-06-23 23:42 | disposition home or self-care (01) ==
LOC: ER 19:50
DX: N39.0 Urinary tract infection, site not specified (principal); D64.9 Anemia, unspecified; N93.8 Other specified abnormal uterine and vaginal bleeding; I10 Essential (primary) hypertension; Z79.899 Other long term (current) drug therapy; Z88.8 Allergy status to other drugs, medicaments and biological substances
CPT/HCPCS: 36415; 80053; 81001; 85025; 96372; 99283; J0696